=== PATIENT | male | born 1930 | race Caucasian/White ===

== ENCOUNTER 2021-07-11 21:48 | Inpatient (IN) | payer MEDICARE, OTHER ==
[~2021-07-11] VITALS: Ht 165.1 cm; Wt 66.7 kg
[2021-07-12] VITALS (17 sets, daily range): BP systolic 102–140; BP diastolic 48–82
[2021-07-12] MEDS ORDERED: ALBUTEROL SULFATE 2.5 MG/0.5 ML INH NEB SOLN NEB PRN ×2 (01:00)
[2021-07-12] MEDS ORDERED: FINA5TAB2 PO (01:53)
[2021-07-12] MEDS ORDERED: ENTR1TAB PO (01:53)
[2021-07-12] MEDS ORDERED: NITR4TASL SL (01:53)
[2021-07-12] MEDS ORDERED: ATOR40TA75 PO (01:53)
[2021-07-12] MEDS ORDERED: TERA2CAP3 PO (01:53)
[2021-07-12] MEDS ORDERED: PARO40TA2 PO (01:53)
[2021-07-12] MEDS ORDERED: TRAM50TA2 PO (01:53)
[2021-07-12] MEDS ORDERED: CLOP75TA2 PO (01:53)
[2021-07-12] MEDS ORDERED: ASPI-161 PO (01:53)
[2021-07-12] MEDS ORDERED: HOME MED LIST COMPLETE! XX SCH (01:55)
[2021-07-12] MEDS: methylPREDNISolone 40MG 1ML VIAL IV SCH ×3 (02:23→17:20)
[2021-07-12] MEDS ORDERED: FUROSEMIDE 40MG/4ML VIAL (J1940) IV ONE (03:15)
[2021-07-12 04:59] LABS: BASO % 0.2 % (0.0-1.0); EOS # 0.1 10^3/uL (0.0-0.5); EOS % 0.4 % (0.0-3.0); HEMATOCRIT 29.7 % (42.0-52.0); HEMOGLOBIN 9.6 g/dl (13.5-17.5); LYMPH # 0.4 10^3/uL (1.5-5.0); LYMPH % 2.8 % (24.0-44.0); MEAN CORPUSCULAR HEMOGLOBIN 30.5 pg (27.0-33.0); MEAN CORPUSCULAR HGB CONC 32.3 g/dl (32.0-36.5); MEAN CORPUSCULAR VOLUME 94.3 fl (80.0-96.0); MONO # 0.4 10^3/uL (0.0-0.8); MONO % 2.9 % (2.0-8.0); NEUTROPHILS # 11.5 10^3/uL (1.5-8.5); NEUTROPHILS % 93.1 % (36.0-66.0); PLATELET COUNT, AUTOMATED 167 10^3/uL (150-450); RED BLOOD COUNT 3.15 10^6/uL (4.30-6.10); WHITE BLOOD COUNT 12.4 10^3/uL (4.0-10.0)
[2021-07-12 05:29] LABS: CALCIUM LEVEL 8.1 MG/DL (8.8-10.2); CREATININE FOR GFR 1.57 MG/DL (0.70-1.30); GLOMERULAR FILTRATION RATE 44.6 (>35); MAGNESIUM LEVEL 1.7 MG/DL (1.8-2.4); PHOSPHORUS LEVEL 3.5 MG/DL (2.5-4.9); POTASSIUM SERUM 4.4 MEQ/L (3.5-5.1)
[2021-07-12] MEDS: HumaLOG INSULIN (NovoLOG) PER UNIT SC SCH ×4 (06:31→20:14)
[2021-07-12] MEDS ORDERED: IPRATROPIUM 0.5MG/ALBUTEROL 2.5MG INH SOL UD 3ML (DUONEB) NEB SCH (08:00)
[2021-07-12 08:23] LABS: ALBUMIN 2.4 GM/DL (3.2-5.2); BILIRUBIN,DIRECT 0.1 MG/DL (0.0-0.2); BILIRUBIN,TOTAL 0.4 MG/DL (0.2-1.0)
[2021-07-12] MEDS: IPRATROPIUM 0.5MG/ALBUTEROL 2.5MG INH SOL UD 3ML (DUONEB) NEB SCH ×3 (08:27→21:28)
[2021-07-12 08:30] LABS: INR 1.19; PROTHROMBIN TIME 15.5 SECONDS (12.7-14.5)
[2021-07-12 08:31] LABS: PARTIAL THROMBOPLASTIN TIME 36.3 SECONDS (25.9-37.0)
[2021-07-12] MEDS ORDERED: ENOXAPARIN 40MG/0.4ML SYRINGE (J1650 PER 10MG) SC SCH (09:00)
[2021-07-12] MEDS: HEPARIN SOD (PORCINE) 5000UNITS/ML 1ML VIAL/SYRINGE SQ SCH ×2 (09:24→20:16)
[2021-07-12] MEDS ORDERED: traMADol 50 MG TAB PO PRN (13:15)
[2021-07-12] MEDS ORDERED: LevoFLOXacin IV 500 MG in IV 1 EA IV ONE (14:00)
[2021-07-12] MEDS: ATORVASTATIN 20 MG TAB PO SCH (15:28)
[2021-07-12] MEDS: CLOPIDOGREL 75 MG TAB PO SCH (15:28)
[2021-07-12] MEDS: LACTOBACILLUS ACIDOPHILUS CAP (BACID) PO SCH (17:20)
[2021-07-12] MEDS: FUROSEMIDE 40MG/4ML VIAL (J1940) IV SCH (17:20)
[2021-07-12] MEDS: TERAZOSIN 1 MG CAP PO SCH (19:34)
[2021-07-13] MEDS: IPRATROPIUM 0.5MG/ALBUTEROL 2.5MG INH SOL UD 3ML (DUONEB) NEB SCH ×4 (01:05→17:48)
[2021-07-13] MEDS: methylPREDNISolone 40MG 1ML VIAL IV SCH ×3 (01:23→18:23)
[2021-07-13 06:00] VITALS: BP 125/48
[2021-07-13 06:11] LABS: ABG BASE EXCESS -7.4 (-2.0-2.0); ABG HCO3 16.6 MEQ/L (22.0-26.0); ABG O2 SATURATION 92.4 % (95.0-99.0); ABG PARTIAL PRESSURE CO2 28.2 mmHg (35.0-45.0); ABG PARTIAL PRESSURE O2 65.2 mmHg (75.0-100.0); ABG STANDARD HCO3 18.3 MEQ/L (22.0-26.0); ABG TOTAL CO2 17.4 MEQ/L (23.0-31.0); ABG pH (ARTERIAL) 7.387 UNITS (7.350-7.450)
[2021-07-13 07:27] LABS: HEMATOCRIT 25.8 % (42.0-52.0); HEMOGLOBIN 8.7 g/dl (13.5-17.5); MEAN CORPUSCULAR HEMOGLOBIN 31.4 pg (27.0-33.0); MEAN CORPUSCULAR HGB CONC 33.7 g/dl (32.0-36.5); MEAN CORPUSCULAR VOLUME 93.1 fl (80.0-96.0); PLATELET COUNT, AUTOMATED 171 10^3/uL (150-450); RED BLOOD COUNT 2.77 10^6/uL (4.30-6.10); WHITE BLOOD COUNT 12.6 10^3/uL (4.0-10.0)
[2021-07-13 07:55] LABS: ALBUMIN 2.4 GM/DL (3.2-5.2); BILIRUBIN,TOTAL 0.2 MG/DL (0.2-1.0); CREATININE FOR GFR 1.93 MG/DL (0.70-1.30); GLOMERULAR FILTRATION RATE 35.2 (>35); POTASSIUM SERUM 4.7 MEQ/L (3.5-5.1); TOTAL PROTEIN 5.2 GM/DL (6.4-8.2)
[2021-07-13] MEDS ORDERED: ONDANSETRON 4MG/2ML VIAL IV PRN (08:15)
[2021-07-13] MEDS ORDERED: ASPIRIN 81MG ENTERIC TABLET PO SCH (09:00)
[2021-07-13] MEDS: FUROSEMIDE 40MG/4ML VIAL (J1940) IV SCH ×2 (09:49→18:22)
[2021-07-13] MEDS: HEPARIN SOD (PORCINE) 5000UNITS/ML 1ML VIAL/SYRINGE SQ SCH ×2 (09:50→21:24)
[2021-07-13] MEDS: ATORVASTATIN 20 MG TAB PO SCH ×2 (09:51→10:05)
[2021-07-13] MEDS: LevoFLOXacin IV 250 MG in IV 1 EA IV SCH (09:52)
[2021-07-13] MEDS: LACTOBACILLUS ACIDOPHILUS CAP (BACID) PO SCH ×2 (09:52→18:24)
[2021-07-13] MEDS: CLOPIDOGREL 75 MG TAB PO SCH (10:05)
[2021-07-13] MEDS: HumaLOG INSULIN (NovoLOG) PER UNIT SC SCH ×4 (10:37→21:00)
[2021-07-13] MEDS: TERAZOSIN 1 MG CAP PO SCH (10:38)
[2021-07-13 10:44] VITALS: BP 123/49
[2021-07-13 14:00] VITALS: BP 113/56
[2021-07-13 18:22] VITALS: BP 116/41
[2021-07-13 19:16] VITALS: BP 117/43
[2021-07-14] MEDS: IPRATROPIUM 0.5MG/ALBUTEROL 2.5MG INH SOL UD 3ML (DUONEB) NEB SCH ×4 (02:20→19:28)
[2021-07-14] MEDS: methylPREDNISolone 40MG 1ML VIAL IV SCH (02:20)
[2021-07-14 03:15] VITALS: BP 139/72
[2021-07-14] MEDS ORDERED: MORPHINE 2 MG/ML 1ML VIAL IV ONE (04:00)
[2021-07-14 04:15] LABS: HEMATOCRIT 28.7 % (42.0-52.0); HEMOGLOBIN 9.4 g/dl (13.5-17.5); MEAN CORPUSCULAR HEMOGLOBIN 30.3 pg (27.0-33.0); MEAN CORPUSCULAR HGB CONC 32.8 g/dl (32.0-36.5); MEAN CORPUSCULAR VOLUME 92.6 fl (80.0-96.0); PLATELET COUNT, AUTOMATED 170 10^3/uL (150-450); WHITE BLOOD COUNT 11.6 10^3/uL (4.0-10.0)
[2021-07-14] MEDS ORDERED: HEPARIN DRIP 25,000 UNITS in IV 1 EA IV SCH (04:15)
[2021-07-14] MEDS ORDERED: HEPARIN SOD (PORCINE) 5000UNITS/ML 1ML VIAL/SYRINGE IV PRN (04:15)
[2021-07-14] MEDS ORDERED: HEPARIN SOD (PORCINE) 5000UNITS/ML 1ML VIAL/SYRINGE IV ONE (04:15)
[2021-07-14 04:35] LABS: CK-MB VALUE MASS 2.3 NG/ML (<3.6); MB/CK RELATIVE INDEX 5.9 (< OR =4)
[2021-07-14 04:52] LABS: ALBUMIN 2.6 GM/DL (3.2-5.2); BILIRUBIN,TOTAL 0.3 MG/DL (0.2-1.0); CALCIUM LEVEL 8.4 MG/DL (8.8-10.2); CREATININE FOR GFR 2.09 MG/DL (0.70-1.30); GLOMERULAR FILTRATION RATE 32.1 (>35); PERCENT SATURATION 13.6 % (19.7-50.0); POTASSIUM SERUM 4.1 MEQ/L (3.5-5.1); TOTAL PROTEIN 5.8 GM/DL (6.4-8.2)
[2021-07-14] MEDS ORDERED: ASPIRIN 81 MG CHEW TABLET PO ONE (05:00)
[2021-07-14 05:15] VITALS: BP 135/69
[2021-07-14] MEDS: CLOPIDOGREL 75 MG TAB PO SCH (09:30)
[2021-07-14] MEDS: LevoFLOXacin IV 250 MG in IV 1 EA IV SCH (09:30)
[2021-07-14] MEDS: FUROSEMIDE 40MG/4ML VIAL (J1940) IV SCH (09:30)
[2021-07-14] MEDS: FINASTERIDE 5MG TAB PO SCH (09:31)
[2021-07-14] MEDS: PARoxetine 20MG TABLET PO SCH (09:31)
[2021-07-14] MEDS: LACTOBACILLUS ACIDOPHILUS CAP (BACID) PO SCH ×2 (09:31→18:20)
[2021-07-14] MEDS: TERAZOSIN 1 MG CAP PO SCH (09:32)
[2021-07-14] MEDS: HumaLOG INSULIN (NovoLOG) PER UNIT SC SCH ×4 (09:58→20:59)
[2021-07-14] MEDS: methylPREDNISolone 125MG 2ML VIAL IV SCH ×2 (11:44→18:20)
[2021-07-14 12:00] VITALS: BP 138/66
[2021-07-14 19:22] LABS: INR 1.16; PROTHROMBIN TIME 15.2 SECONDS (12.7-14.5)
[2021-07-14 19:23] LABS: PARTIAL THROMBOPLASTIN TIME 32.9 SECONDS (25.9-37.0)
[2021-07-14] MEDS: FERROUS SULFATE 325MG TAB PO SCH (21:05)
[2021-07-14] MEDS: DOCUSATE SODIUM 100MG CAPSULE PO SCH (21:05)
[2021-07-14] MEDS: HEPARIN SOD (PORCINE) 5000UNITS/ML 1ML VIAL/SYRINGE SQ SCH (21:05)
[2021-07-14 22:00] VITALS: BP 124/54
[2021-07-15] MEDS: IPRATROPIUM 0.5MG/ALBUTEROL 2.5MG INH SOL UD 3ML (DUONEB) NEB SCH ×4 (02:00→19:17)
[2021-07-15] MEDS: methylPREDNISolone 125MG 2ML VIAL IV SCH ×3 (02:09→18:03)
[2021-07-15 02:21] VITALS: BP 124/55
[2021-07-15 05:29] VITALS: BP 121/52
[2021-07-15 06:15] LABS: HEMATOCRIT 26.6 % (42.0-52.0); HEMOGLOBIN 8.8 g/dl (13.5-17.5); MEAN CORPUSCULAR HEMOGLOBIN 30.2 pg (27.0-33.0); MEAN CORPUSCULAR HGB CONC 33.1 g/dl (32.0-36.5); MEAN CORPUSCULAR VOLUME 91.4 fl (80.0-96.0); PLATELET COUNT, AUTOMATED 163 10^3/uL (150-450); RED BLOOD COUNT 2.91 10^6/uL (4.30-6.10); WHITE BLOOD COUNT 10.7 10^3/uL (4.0-10.0)
[2021-07-15 06:38] LABS: ALBUMIN 2.4 GM/DL (3.2-5.2); ALT/SGPT 16 U/L (12-78); BILIRUBIN,TOTAL 0.2 MG/DL (0.2-1.0); BLOOD UREA NITROGEN 87 MG/DL (7-18); CALCIUM LEVEL 7.9 MG/DL (8.8-10.2); CARBON DIOXIDE LEVEL 24 MEQ/L (21-32); CHLORIDE LEVEL 108 MEQ/L (98-107); CREATININE FOR GFR 2.07 MG/DL (0.70-1.30); FERRITIN 122 NG/ML (26-388); GLOMERULAR FILTRATION RATE 32.4 (>35); GLUCOSE, FASTING 179 MG/DL (70-100); IRON (FE) 61 UG/DL (65-175); PERCENT SATURATION 28.1 % (19.7-50.0); POTASSIUM SERUM 4.1 MEQ/L (3.5-5.1); SODIUM LEVEL 139 MEQ/L (136-145); TOTAL IRON BINDING CAPACITY 217 UG/DL (250-450); TOTAL PROTEIN 5.1 GM/DL (6.4-8.2)
[2021-07-15] MEDS: HumaLOG INSULIN (NovoLOG) PER UNIT SC SCH ×4 (08:25→21:53)
[2021-07-15] MEDS: HEPARIN SOD (PORCINE) 5000UNITS/ML 1ML VIAL/SYRINGE SQ SCH ×2 (08:26→21:53)
[2021-07-15] MEDS: FERROUS SULFATE 325MG TAB PO SCH ×2 (08:26→21:53)
[2021-07-15] MEDS: LACTOBACILLUS ACIDOPHILUS CAP (BACID) PO SCH ×2 (08:26→18:03)
[2021-07-15] MEDS: CLOPIDOGREL 75 MG TAB PO SCH (08:27)
[2021-07-15] MEDS: FINASTERIDE 5MG TAB PO SCH (08:27)
[2021-07-15] MEDS: PARoxetine 20MG TABLET PO SCH (08:27)
[2021-07-15] MEDS: DOCUSATE SODIUM 100MG CAPSULE PO SCH ×2 (08:27→21:53)
[2021-07-15] MEDS: TERAZOSIN 1 MG CAP PO SCH (08:28)
[2021-07-15] MEDS: ATORVASTATIN 20 MG TAB PO SCH (08:28)
[2021-07-15] MEDS: ENTRESTO 24-26MG TABLET (SACUBITRIL/VALSARTAN) PO SCH ×2 (10:54→21:52)
[2021-07-15 11:21] LABS: PTH INTACT 71.4 PG/ML (18.5-88.0); TOTAL 25(OH) VITAMIN D 31.3 NG/ML (30.0-100.0)
[2021-07-15 12:35] LABS: HEMOGLOBIN A1c 5.9 %
[2021-07-15 14:00] VITALS: BP 120/50
[2021-07-15 21:50] VITALS: BP 127/49
[2021-07-16] MEDS: methylPREDNISolone 125MG 2ML VIAL IV SCH ×3 (01:57→18:46)
[2021-07-16] MEDS: IPRATROPIUM 0.5MG/ALBUTEROL 2.5MG INH SOL UD 3ML (DUONEB) NEB SCH ×4 (01:57→19:48)
[2021-07-16] MEDS: NYSTATIN 100,000 UNITS/GM TOPICAL PWD 15 GM TOP SCH ×3 (01:57→22:18)
[2021-07-16 06:15] LABS: HEMATOCRIT 27.5 % (42.0-52.0); HEMOGLOBIN 8.9 g/dl (13.5-17.5); MEAN CORPUSCULAR HEMOGLOBIN 30.2 pg (27.0-33.0); MEAN CORPUSCULAR HGB CONC 32.4 g/dl (32.0-36.5); MEAN CORPUSCULAR VOLUME 93.2 fl (80.0-96.0); PLATELET COUNT, AUTOMATED 168 10^3/uL (150-450); RED BLOOD COUNT 2.95 10^6/uL (4.30-6.10); WHITE BLOOD COUNT 12.5 10^3/uL (4.0-10.0)
[2021-07-16 06:26] VITALS: BP 127/50
[2021-07-16 06:38] LABS: ALBUMIN 2.5 GM/DL (3.2-5.2); BILIRUBIN,TOTAL 0.2 MG/DL (0.2-1.0); CALCIUM LEVEL 8.3 MG/DL (8.8-10.2); CREATININE FOR GFR 1.93 MG/DL (0.70-1.30); GLOMERULAR FILTRATION RATE 35.2 (>35); POTASSIUM SERUM 4.2 MEQ/L (3.5-5.1); TOTAL PROTEIN 5.1 GM/DL (6.4-8.2)
[2021-07-16 06:49] LABS: CREATININE,RANDOM URINE 73.1 MG/DL
[2021-07-16] MEDS: HumaLOG INSULIN (NovoLOG) PER UNIT SC SCH ×4 (10:21→21:00)
[2021-07-16] MEDS: HEPARIN SOD (PORCINE) 5000UNITS/ML 1ML VIAL/SYRINGE SQ SCH ×2 (10:22→22:17)
[2021-07-16] MEDS: ATORVASTATIN 20 MG TAB PO SCH (10:23)
[2021-07-16] MEDS: ENTRESTO 24-26MG TABLET (SACUBITRIL/VALSARTAN) PO SCH ×2 (10:23→22:18)
[2021-07-16] MEDS: FERROUS SULFATE 325MG TAB PO SCH ×2 (10:23→22:18)
[2021-07-16] MEDS: DOCUSATE SODIUM 100MG CAPSULE PO SCH ×2 (10:23→22:17)
[2021-07-16] MEDS: CLOPIDOGREL 75 MG TAB PO SCH (10:23)
[2021-07-16] MEDS: FINASTERIDE 5MG TAB PO SCH (10:23)
[2021-07-16] MEDS: PARoxetine 20MG TABLET PO SCH (10:29)
[2021-07-16] MEDS: TERAZOSIN 1 MG CAP PO SCH (10:29)
[2021-07-16] MEDS: LACTOBACILLUS ACIDOPHILUS CAP (BACID) PO SCH ×2 (10:29→18:46)
[2021-07-16] MEDS: FUROSEMIDE 100MG/10ML VIAL (J1940) IV SCH ×2 (11:29→19:21)
[2021-07-16 14:00] VITALS: BP 133/60
[2021-07-16 20:24] VITALS: BP 128/63
[2021-07-17] MEDS: IPRATROPIUM 0.5MG/ALBUTEROL 2.5MG INH SOL UD 3ML (DUONEB) NEB SCH ×4 (01:24→18:23)
[2021-07-17] MEDS: FUROSEMIDE 100MG/10ML VIAL (J1940) IV SCH ×2 (03:17→09:21)
[2021-07-17] MEDS: methylPREDNISolone 125MG 2ML VIAL IV SCH ×2 (06:17→19:54)
[2021-07-17 06:44] LABS: HEMATOCRIT 30.3 % (42.0-52.0); HEMOGLOBIN 10.3 g/dl (13.5-17.5); MEAN CORPUSCULAR HEMOGLOBIN 30.6 pg (27.0-33.0); MEAN CORPUSCULAR VOLUME 89.9 fl (80.0-96.0); PLATELET COUNT, AUTOMATED 205 10^3/uL (150-450); RED BLOOD COUNT 3.37 10^6/uL (4.30-6.10); WHITE BLOOD COUNT 18.9 10^3/uL (4.0-10.0)
[2021-07-17 07:20] LABS: ALBUMIN 2.7 GM/DL (3.2-5.2); BILIRUBIN,TOTAL 0.4 MG/DL (0.2-1.0); CALCIUM LEVEL 8.1 MG/DL (8.8-10.2); CREATININE FOR GFR 1.92 MG/DL (0.70-1.30); GLOMERULAR FILTRATION RATE 35.4 (>35); POTASSIUM SERUM 4.1 MEQ/L (3.5-5.1); TOTAL PROTEIN 5.6 GM/DL (6.4-8.2)
[2021-07-17] MEDS: HumaLOG INSULIN (NovoLOG) PER UNIT SC SCH ×4 (09:20→21:00)
[2021-07-17] MEDS: FINASTERIDE 5MG TAB PO SCH (09:20)
[2021-07-17] MEDS: HEPARIN SOD (PORCINE) 5000UNITS/ML 1ML VIAL/SYRINGE SQ SCH ×2 (09:20→23:20)
[2021-07-17] MEDS: PARoxetine 20MG TABLET PO SCH (09:20)
[2021-07-17] MEDS: ENTRESTO 24-26MG TABLET (SACUBITRIL/VALSARTAN) PO SCH ×2 (09:21→23:19)
[2021-07-17] MEDS: CLOPIDOGREL 75 MG TAB PO SCH (09:21)
[2021-07-17] MEDS: FERROUS SULFATE 325MG TAB PO SCH ×2 (09:21→23:20)
[2021-07-17] MEDS: DOCUSATE SODIUM 100MG CAPSULE PO SCH ×2 (09:21→23:19)
[2021-07-17] MEDS: ATORVASTATIN 20 MG TAB PO SCH (09:21)
[2021-07-17] MEDS: LACTOBACILLUS ACIDOPHILUS CAP (BACID) PO SCH ×2 (09:21→18:00)
[2021-07-17] MEDS: TERAZOSIN 1 MG CAP PO SCH (09:24)
[2021-07-17] MEDS: NYSTATIN 100,000 UNITS/GM TOPICAL PWD 15 GM TOP SCH ×2 (09:24→23:21)
[2021-07-17 13:39] VITALS: BP 86/56
[2021-07-17 14:00] VITALS: BP 98/52
[2021-07-17] MEDS ORDERED: NS 1,000 ML IV ONE (14:45)
[2021-07-17 14:50] VITALS: BP 104/51
[2021-07-17 15:25] VITALS: BP 106/50
[2021-07-17] MEDS ORDERED: FUROSEMIDE 100MG/10ML VIAL (J1940) IV SCH (17:00)
[2021-07-17 18:00] VITALS: BP 104/50
[2021-07-18] MEDS: IPRATROPIUM 0.5MG/ALBUTEROL 2.5MG INH SOL UD 3ML (DUONEB) NEB SCH ×4 (02:11→18:04)
[2021-07-18 06:00] VITALS: BP 107/50
[2021-07-18 06:13] LABS: HEMOGLOBIN 9.8 g/dl (13.5-17.5); MEAN CORPUSCULAR HEMOGLOBIN 30.3 pg (27.0-33.0); MEAN CORPUSCULAR HGB CONC 32.7 g/dl (32.0-36.5); MEAN CORPUSCULAR VOLUME 92.9 fl (80.0-96.0); PLATELET COUNT, AUTOMATED 182 10^3/uL (150-450); RED BLOOD COUNT 3.23 10^6/uL (4.30-6.10)
[2021-07-18 06:38] LABS: ALBUMIN 2.5 GM/DL (3.2-5.2); BILIRUBIN,TOTAL 0.4 MG/DL (0.2-1.0); CALCIUM LEVEL 7.7 MG/DL (8.8-10.2); CREATININE FOR GFR 2.1 MG/DL (0.70-1.30); GLOMERULAR FILTRATION RATE 31.9 (>35); TOTAL PROTEIN 5.1 GM/DL (6.4-8.2)
[2021-07-18] MEDS: HumaLOG INSULIN (NovoLOG) PER UNIT SC SCH ×4 (07:30→21:00)
[2021-07-18] MEDS: DOCUSATE SODIUM 100MG CAPSULE PO SCH ×2 (09:00→21:45)
[2021-07-18] MEDS: FERROUS SULFATE 325MG TAB PO SCH ×2 (09:56→21:45)
[2021-07-18] MEDS: LACTOBACILLUS ACIDOPHILUS CAP (BACID) PO SCH ×2 (09:56→18:00)
[2021-07-18] MEDS: PARoxetine 20MG TABLET PO SCH (09:56)
[2021-07-18] MEDS: ATORVASTATIN 20 MG TAB PO SCH (09:56)
[2021-07-18] MEDS: CLOPIDOGREL 75 MG TAB PO SCH (09:56)
[2021-07-18] MEDS: FINASTERIDE 5MG TAB PO SCH (09:56)
[2021-07-18] MEDS: predniSONE 20 MG TAB PO SCH (09:56)
[2021-07-18] MEDS: TERAZOSIN 1 MG CAP PO SCH (09:57)
[2021-07-18 09:58] VITALS: BP 125/59
[2021-07-18] MEDS: NYSTATIN 100,000 UNITS/GM TOPICAL PWD 15 GM TOP SCH ×2 (09:58→21:46)
[2021-07-18] MEDS: ENTRESTO 24-26MG TABLET (SACUBITRIL/VALSARTAN) PO SCH (09:58)
[2021-07-18] MEDS: HEPARIN SOD (PORCINE) 5000UNITS/ML 1ML VIAL/SYRINGE SQ SCH ×2 (09:58→21:46)
[2021-07-18 12:58] LABS: ALBUMIN 2.64 GM/DL (3.29-5.55); ALBUMIN % 51.7 % (55.8-66.1); ALPHA-1-GLOBULIN % 9.5 % (2.9-4.9); ALPHA-1-GLOBULINS 0.48 GM/DL (0.17-0.41); BETA-1-GLOBULINS % 5.4 % (4.7-7.2); BETA-2-GLOBULINS % 4.6 % (3.2-6.5); GAMMA GLOBULIN % 12.8 % (11.1-18.8)
[2021-07-18 12:59] LABS: ALPHA-2-GLOBULINS 0.82 GM/DL (0.42-0.99); BETA-1-GLOBULINS 0.28 GM/DL (0.28-0.60); BETA-2-GLOBULINS 0.23 GM/DL (0.19-0.55); GAMMA GLOBULINS 0.65 GM/DL (0.65-1.58)
[2021-07-18 14:20] VITALS: BP 78/56
[2021-07-18 14:30] VITALS: BP 107/49
[2021-07-18 21:01] VITALS: BP 105/51
[2021-07-19] MEDS: IPRATROPIUM 0.5MG/ALBUTEROL 2.5MG INH SOL UD 3ML (DUONEB) NEB SCH ×4 (02:00→20:04)
[2021-07-19 05:07] VITALS: BP 109/52
[2021-07-19 06:25] LABS: HEMATOCRIT 31.8 % (42.0-52.0); HEMOGLOBIN 10.4 g/dl (13.5-17.5); MEAN CORPUSCULAR HEMOGLOBIN 30.1 pg (27.0-33.0); MEAN CORPUSCULAR HGB CONC 32.7 g/dl (32.0-36.5); MEAN CORPUSCULAR VOLUME 91.9 fl (80.0-96.0); PLATELET COUNT, AUTOMATED 157 10^3/uL (150-450); RED BLOOD COUNT 3.46 10^6/uL (4.30-6.10); WHITE BLOOD COUNT 17.9 10^3/uL (4.0-10.0)
[2021-07-19 06:52] LABS: ALBUMIN 2.4 GM/DL (3.2-5.2); BILIRUBIN,TOTAL 0.5 MG/DL (0.2-1.0); CALCIUM LEVEL 7.9 MG/DL (8.8-10.2); CREATININE FOR GFR 1.89 MG/DL (0.70-1.30); POTASSIUM SERUM 3.9 MEQ/L (3.5-5.1); TOTAL PROTEIN 5.4 GM/DL (6.4-8.2)
[2021-07-19 07:00] VITALS: BP 110/48
[2021-07-19] MEDS: HumaLOG INSULIN (NovoLOG) PER UNIT SC SCH ×4 (07:29→21:00)
[2021-07-19] MEDS: LACTOBACILLUS ACIDOPHILUS CAP (BACID) PO SCH ×2 (07:33→18:00)
[2021-07-19] MEDS: CLOPIDOGREL 75 MG TAB PO SCH (09:15)
[2021-07-19] MEDS: FERROUS SULFATE 325MG TAB PO SCH ×2 (09:16→21:59)
[2021-07-19] MEDS: FINASTERIDE 5MG TAB PO SCH (09:16)
[2021-07-19] MEDS: PARoxetine 20MG TABLET PO SCH (09:16)
[2021-07-19] MEDS: ATORVASTATIN 20 MG TAB PO SCH (09:16)
[2021-07-19] MEDS: DOCUSATE SODIUM 100MG CAPSULE PO SCH ×2 (09:16→21:59)
[2021-07-19] MEDS: predniSONE 20 MG TAB PO SCH (09:16)
[2021-07-19] MEDS: HEPARIN SOD (PORCINE) 5000UNITS/ML 1ML VIAL/SYRINGE SQ SCH ×2 (09:17→21:59)
[2021-07-19] MEDS: NYSTATIN 100,000 UNITS/GM TOPICAL PWD 15 GM TOP SCH ×2 (09:21→22:00)
[2021-07-19] MEDS: TERAZOSIN 1 MG CAP PO SCH (10:04)
[2021-07-19 14:00] VITALS: BP 110/50
[2021-07-19 18:00] VITALS: BP 100/46
[2021-07-20] MEDS: IPRATROPIUM 0.5MG/ALBUTEROL 2.5MG INH SOL UD 3ML (DUONEB) NEB SCH ×4 (01:30→19:25)
[2021-07-20 05:21] VITALS: BP 120/55
[2021-07-20 07:03] LABS: HEMOGLOBIN 10.5 g/dl (13.5-17.5); MEAN CORPUSCULAR HEMOGLOBIN 30.4 pg (27.0-33.0); MEAN CORPUSCULAR HGB CONC 32.8 g/dl (32.0-36.5); MEAN CORPUSCULAR VOLUME 92.8 fl (80.0-96.0); PLATELET COUNT, AUTOMATED 169 10^3/uL (150-450); RED BLOOD COUNT 3.45 10^6/uL (4.30-6.10); WHITE BLOOD COUNT 16.5 10^3/uL (4.0-10.0)
[2021-07-20] MEDS: HumaLOG INSULIN (NovoLOG) PER UNIT SC SCH ×4 (07:30→20:08)
[2021-07-20 07:33] LABS: ALBUMIN 2.4 GM/DL (3.2-5.2); BILIRUBIN,TOTAL 0.4 MG/DL (0.2-1.0); CALCIUM LEVEL 7.8 MG/DL (8.8-10.2); CREATININE FOR GFR 2.04 MG/DL (0.70-1.30); POTASSIUM SERUM 3.9 MEQ/L (3.5-5.1)
[2021-07-20] MEDS: FERROUS SULFATE 325MG TAB PO SCH ×2 (08:21→21:07)
[2021-07-20] MEDS: PARoxetine 20MG TABLET PO SCH (08:21)
[2021-07-20] MEDS: CLOPIDOGREL 75 MG TAB PO SCH (08:21)
[2021-07-20] MEDS: predniSONE 20 MG TAB PO SCH (08:21)
[2021-07-20] MEDS: HEPARIN SOD (PORCINE) 5000UNITS/ML 1ML VIAL/SYRINGE SQ SCH ×2 (08:22→21:07)
[2021-07-20] MEDS: LACTOBACILLUS ACIDOPHILUS CAP (BACID) PO SCH ×2 (08:22→17:45)
[2021-07-20] MEDS: DOCUSATE SODIUM 100MG CAPSULE PO SCH ×2 (08:22→21:07)
[2021-07-20] MEDS: TERAZOSIN 1 MG CAP PO SCH (08:23)
[2021-07-20] MEDS: FINASTERIDE 5MG TAB PO SCH (08:24)
[2021-07-20] MEDS: ATORVASTATIN 20 MG TAB PO SCH (08:24)
[2021-07-20] MEDS: NYSTATIN 100,000 UNITS/GM TOPICAL PWD 15 GM TOP SCH ×2 (08:25→21:08)
[2021-07-20] MEDS: TORSEMIDE 20 MG TAB PO SCH (10:26)
[2021-07-20 11:36] VITALS: O2SAT 93
[2021-07-21] MEDS: IPRATROPIUM 0.5MG/ALBUTEROL 2.5MG INH SOL UD 3ML (DUONEB) NEB SCH ×4 (02:00→19:55)
[2021-07-21 06:00] VITALS: BP 115/55
[2021-07-21 06:51] LABS: HEMATOCRIT 32.2 % (42.0-52.0); HEMOGLOBIN 10.4 g/dl (13.5-17.5); MEAN CORPUSCULAR HEMOGLOBIN 30.1 pg (27.0-33.0); MEAN CORPUSCULAR HGB CONC 32.3 g/dl (32.0-36.5); MEAN CORPUSCULAR VOLUME 93.3 fl (80.0-96.0); PLATELET COUNT, AUTOMATED 165 10^3/uL (150-450); RED BLOOD COUNT 3.45 10^6/uL (4.30-6.10); WHITE BLOOD COUNT 14.4 10^3/uL (4.0-10.0)
[2021-07-21 07:20] LABS: ALBUMIN 2.5 GM/DL (3.2-5.2); BILIRUBIN,TOTAL 0.4 MG/DL (0.2-1.0); CALCIUM LEVEL 7.8 MG/DL (8.8-10.2); CREATININE FOR GFR 1.93 MG/DL (0.70-1.30); GLOMERULAR FILTRATION RATE 35.2 (>35); POTASSIUM SERUM 4.2 MEQ/L (3.5-5.1); TOTAL PROTEIN 5.1 GM/DL (6.4-8.2)
[2021-07-21] MEDS: HumaLOG INSULIN (NovoLOG) PER UNIT SC SCH ×4 (08:38→21:00)
[2021-07-21] MEDS: HEPARIN SOD (PORCINE) 5000UNITS/ML 1ML VIAL/SYRINGE SQ SCH ×2 (09:10→21:59)
[2021-07-21] MEDS: FINASTERIDE 5MG TAB PO SCH (09:10)
[2021-07-21] MEDS: PARoxetine 20MG TABLET PO SCH (09:13)
[2021-07-21] MEDS: predniSONE 50 MG TAB PO SCH (09:13)
[2021-07-21] MEDS: ATORVASTATIN 20 MG TAB PO SCH (09:14)
[2021-07-21] MEDS: FERROUS SULFATE 325MG TAB PO SCH ×2 (09:14→21:59)
[2021-07-21] MEDS: TERAZOSIN 1 MG CAP PO SCH (09:14)
[2021-07-21] MEDS: TORSEMIDE 20 MG TAB PO SCH (09:15)
[2021-07-21] MEDS: CLOPIDOGREL 75 MG TAB PO SCH (09:15)
[2021-07-21] MEDS: DOCUSATE SODIUM 100MG CAPSULE PO SCH ×2 (09:15→21:59)
[2021-07-21] MEDS: LACTOBACILLUS ACIDOPHILUS CAP (BACID) PO SCH ×2 (09:15→18:03)
[2021-07-21] MEDS: NYSTATIN 100,000 UNITS/GM TOPICAL PWD 15 GM TOP SCH ×2 (09:16→22:00)
[2021-07-21 22:00] VITALS: BP 108/53
[2021-07-22] MEDS: IPRATROPIUM 0.5MG/ALBUTEROL 2.5MG INH SOL UD 3ML (DUONEB) NEB SCH ×4 (02:00→19:55)
[2021-07-22 06:00] VITALS: BP 124/58
[2021-07-22] MEDS: HumaLOG INSULIN (NovoLOG) PER UNIT SC SCH ×4 (07:30→21:00)
[2021-07-22 07:46] LABS: MEAN CORPUSCULAR HGB CONC 33.3 g/dl (32.0-36.5); PLATELET COUNT, AUTOMATED 150 10^3/uL (150-450); RED BLOOD COUNT 3.55 10^6/uL (4.30-6.10); WHITE BLOOD COUNT 12.4 10^3/uL (4.0-10.0)
[2021-07-22 08:12] LABS: ALBUMIN 2.5 GM/DL (3.2-5.2); BILIRUBIN,TOTAL 0.4 MG/DL (0.2-1.0); CALCIUM LEVEL 7.8 MG/DL (8.8-10.2); CREATININE FOR GFR 1.97 MG/DL (0.70-1.30); GLOMERULAR FILTRATION RATE 34.3 (>35); POTASSIUM SERUM 3.9 MEQ/L (3.5-5.1); TOTAL PROTEIN 5.5 GM/DL (6.4-8.2)
[2021-07-22] MEDS: predniSONE 50 MG TAB PO SCH (09:37)
[2021-07-22] MEDS: HEPARIN SOD (PORCINE) 5000UNITS/ML 1ML VIAL/SYRINGE SQ SCH ×2 (09:37→21:06)
[2021-07-22] MEDS: PARoxetine 20MG TABLET PO SCH (09:42)
[2021-07-22] MEDS: TERAZOSIN 1 MG CAP PO SCH (09:42)
[2021-07-22] MEDS: ATORVASTATIN 20 MG TAB PO SCH (09:43)
[2021-07-22] MEDS: DOCUSATE SODIUM 100MG CAPSULE PO SCH ×2 (09:43→21:06)
[2021-07-22] MEDS: FINASTERIDE 5MG TAB PO SCH (09:43)
[2021-07-22] MEDS: LACTOBACILLUS ACIDOPHILUS CAP (BACID) PO SCH ×2 (09:43→19:37)
[2021-07-22] MEDS: FERROUS SULFATE 325MG TAB PO SCH ×2 (09:43→21:06)
[2021-07-22] MEDS: CLOPIDOGREL 75 MG TAB PO SCH (09:43)
[2021-07-22] MEDS: TORSEMIDE 20 MG TAB PO SCH (09:43)
[2021-07-22] MEDS: NYSTATIN 100,000 UNITS/GM TOPICAL PWD 15 GM TOP SCH ×2 (09:56→21:07)
[2021-07-22 18:09] VITALS: BP 121/53
[2021-07-22 18:14] VITALS: BP 89/51
[2021-07-23] MEDS: IPRATROPIUM 0.5MG/ALBUTEROL 2.5MG INH SOL UD 3ML (DUONEB) NEB SCH ×4 (02:42→19:45)
[2021-07-23 05:24] VITALS: BP 110/58
[2021-07-23 07:20] LABS: HEMATOCRIT 32.3 % (42.0-52.0); HEMOGLOBIN 10.5 g/dl (13.5-17.5); MEAN CORPUSCULAR HEMOGLOBIN 30.2 pg (27.0-33.0); MEAN CORPUSCULAR HGB CONC 32.5 g/dl (32.0-36.5); MEAN CORPUSCULAR VOLUME 92.8 fl (80.0-96.0); PLATELET COUNT, AUTOMATED 152 10^3/uL (150-450); RED BLOOD COUNT 3.48 10^6/uL (4.30-6.10); WHITE BLOOD COUNT 13.8 10^3/uL (4.0-10.0)
[2021-07-23 07:27] LABS: ALBUMIN 2.5 GM/DL (3.2-5.2); BILIRUBIN,TOTAL 0.3 MG/DL (0.2-1.0); CREATININE FOR GFR 2.07 MG/DL (0.70-1.30); GLOMERULAR FILTRATION RATE 32.4 (>35); POTASSIUM SERUM 4.2 MEQ/L (3.5-5.1); TOTAL PROTEIN 5.7 GM/DL (6.4-8.2)
[2021-07-23] MEDS: HumaLOG INSULIN (NovoLOG) PER UNIT SC SCH ×4 (07:30→20:24)
[2021-07-23] MEDS: TORSEMIDE 20 MG TAB PO SCH (08:35)
[2021-07-23] MEDS: ATORVASTATIN 20 MG TAB PO SCH (08:35)
[2021-07-23] MEDS: PARoxetine 20MG TABLET PO SCH (08:37)
[2021-07-23] MEDS: LACTOBACILLUS ACIDOPHILUS CAP (BACID) PO SCH ×2 (08:37→17:48)
[2021-07-23] MEDS: CLOPIDOGREL 75 MG TAB PO SCH (08:37)
[2021-07-23] MEDS: TERAZOSIN 1 MG CAP PO SCH (08:37)
[2021-07-23] MEDS: DOCUSATE SODIUM 100MG CAPSULE PO SCH ×2 (08:37→20:23)
[2021-07-23] MEDS: FINASTERIDE 5MG TAB PO SCH (08:37)
[2021-07-23] MEDS: predniSONE 20 MG TAB PO SCH (08:38)
[2021-07-23] MEDS: FERROUS SULFATE 325MG TAB PO SCH ×2 (08:38→20:23)
[2021-07-23] MEDS: HEPARIN SOD (PORCINE) 5000UNITS/ML 1ML VIAL/SYRINGE SQ SCH ×2 (08:40→20:23)
[2021-07-23] MEDS: NYSTATIN 100,000 UNITS/GM TOPICAL PWD 15 GM TOP SCH ×2 (08:41→21:06)
[2021-07-24] MEDS: IPRATROPIUM 0.5MG/ALBUTEROL 2.5MG INH SOL UD 3ML (DUONEB) NEB SCH ×4 (02:51→19:38)
[2021-07-24 04:58] VITALS: BP 102/63
[2021-07-24 06:14] LABS: HEMATOCRIT 32.4 % (42.0-52.0); HEMOGLOBIN 10.8 g/dl (13.5-17.5); MEAN CORPUSCULAR HEMOGLOBIN 31.1 pg (27.0-33.0); MEAN CORPUSCULAR HGB CONC 33.3 g/dl (32.0-36.5); MEAN CORPUSCULAR VOLUME 93.4 fl (80.0-96.0); PLATELET COUNT, AUTOMATED 136 10^3/uL (150-450); RED BLOOD COUNT 3.47 10^6/uL (4.30-6.10); WHITE BLOOD COUNT 14.7 10^3/uL (4.0-10.0)
[2021-07-24 06:42] LABS: ALBUMIN 2.5 GM/DL (3.2-5.2); BILIRUBIN,TOTAL 0.5 MG/DL (0.2-1.0); CALCIUM LEVEL 7.8 MG/DL (8.8-10.2); CREATININE FOR GFR 2.04 MG/DL (0.70-1.30); POTASSIUM SERUM 4.7 MEQ/L (3.5-5.1); TOTAL PROTEIN 5.5 GM/DL (6.4-8.2)
[2021-07-24] MEDS: HumaLOG INSULIN (NovoLOG) PER UNIT SC SCH ×4 (07:30→21:37)
[2021-07-24] MEDS: HEPARIN SOD (PORCINE) 5000UNITS/ML 1ML VIAL/SYRINGE SQ SCH ×2 (08:33→21:38)
[2021-07-24] MEDS: FINASTERIDE 5MG TAB PO SCH (08:33)
[2021-07-24] MEDS: LACTOBACILLUS ACIDOPHILUS CAP (BACID) PO SCH ×2 (08:33→16:58)
[2021-07-24] MEDS: PARoxetine 20MG TABLET PO SCH (08:33)
[2021-07-24] MEDS: NYSTATIN 100,000 UNITS/GM TOPICAL PWD 15 GM TOP SCH ×2 (08:33→21:38)
[2021-07-24] MEDS: DOCUSATE SODIUM 100MG CAPSULE PO SCH ×2 (08:34→21:36)
[2021-07-24] MEDS: ATORVASTATIN 20 MG TAB PO SCH (08:34)
[2021-07-24] MEDS: CLOPIDOGREL 75 MG TAB PO SCH (08:34)
[2021-07-24] MEDS: predniSONE 20 MG TAB PO SCH (08:34)
[2021-07-24] MEDS: TORSEMIDE 10 MG TABLET PO SCH (08:34)
[2021-07-24] MEDS: TERAZOSIN 1 MG CAP PO SCH (08:34)
[2021-07-24] MEDS: FERROUS SULFATE 325MG TAB PO SCH ×2 (08:34→21:37)
[2021-07-24 20:00] VITALS: BP 130/61
[2021-07-25] MEDS: IPRATROPIUM 0.5MG/ALBUTEROL 2.5MG INH SOL UD 3ML (DUONEB) NEB SCH ×4 (02:05→19:30)
[2021-07-25 06:00] VITALS: BP 114/60
[2021-07-25 06:37] LABS: HEMATOCRIT 30.9 % (42.0-52.0); HEMOGLOBIN 10.1 g/dl (13.5-17.5); MEAN CORPUSCULAR HEMOGLOBIN 30.3 pg (27.0-33.0); MEAN CORPUSCULAR HGB CONC 32.7 g/dl (32.0-36.5); MEAN CORPUSCULAR VOLUME 92.8 fl (80.0-96.0); PLATELET COUNT, AUTOMATED 133 10^3/uL (150-450); RED BLOOD COUNT 3.33 10^6/uL (4.30-6.10); WHITE BLOOD COUNT 17.3 10^3/uL (4.0-10.0)
[2021-07-25 07:12] LABS: ALBUMIN 2.4 GM/DL (3.2-5.2); BILIRUBIN,TOTAL 0.4 MG/DL (0.2-1.0); CREATININE FOR GFR 1.89 MG/DL (0.70-1.30); POTASSIUM SERUM 4.1 MEQ/L (3.5-5.1); TOTAL PROTEIN 5.3 GM/DL (6.4-8.2)
[2021-07-25] MEDS: HumaLOG INSULIN (NovoLOG) PER UNIT SC SCH ×4 (07:30→20:04)
[2021-07-25] MEDS: PARoxetine 20MG TABLET PO SCH (10:19)
[2021-07-25] MEDS: HEPARIN SOD (PORCINE) 5000UNITS/ML 1ML VIAL/SYRINGE SQ SCH ×2 (10:19→20:09)
[2021-07-25] MEDS: FERROUS SULFATE 325MG TAB PO SCH ×2 (10:20→20:08)
[2021-07-25] MEDS: DOCUSATE SODIUM 100MG CAPSULE PO SCH ×2 (10:20→20:08)
[2021-07-25] MEDS: predniSONE 20 MG TAB PO SCH (10:20)
[2021-07-25] MEDS: FINASTERIDE 5MG TAB PO SCH (10:20)
[2021-07-25] MEDS: TERAZOSIN 1 MG CAP PO SCH (10:20)
[2021-07-25] MEDS: CLOPIDOGREL 75 MG TAB PO SCH (10:21)
[2021-07-25] MEDS: ATORVASTATIN 20 MG TAB PO SCH (10:21)
[2021-07-25] MEDS: TORSEMIDE 10 MG TABLET PO SCH (10:21)
[2021-07-25] MEDS: LACTOBACILLUS ACIDOPHILUS CAP (BACID) PO SCH ×2 (10:22→17:01)
[2021-07-25] MEDS: NYSTATIN 100,000 UNITS/GM TOPICAL PWD 15 GM TOP SCH ×2 (10:22→20:10)
[2021-07-25 14:00] VITALS: BP 103/54
[2021-07-25] MEDS: MOM 30ML SUSPENSION UDC PO PRN (15:34)
[2021-07-25] MEDS: ACETAMINOPHEN TAB 650MG DOSE (2X325MG) PO PRN (17:02)
[2021-07-26] MEDS: IPRATROPIUM 0.5MG/ALBUTEROL 2.5MG INH SOL UD 3ML (DUONEB) NEB SCH ×4 (01:12→19:32)
[2021-07-26] MEDS: ACETAMINOPHEN TAB 650MG DOSE (2X325MG) PO PRN (04:05)
[2021-07-26 04:50] VITALS: BP 133/61
[2021-07-26 06:47] LABS: HEMATOCRIT 30.4 % (42.0-52.0); HEMOGLOBIN 10.2 g/dl (13.5-17.5); MEAN CORPUSCULAR HEMOGLOBIN 31.3 pg (27.0-33.0); MEAN CORPUSCULAR HGB CONC 33.6 g/dl (32.0-36.5); MEAN CORPUSCULAR VOLUME 93.3 fl (80.0-96.0); PLATELET COUNT, AUTOMATED 129 10^3/uL (150-450); RED BLOOD COUNT 3.26 10^6/uL (4.30-6.10); WHITE BLOOD COUNT 15.8 10^3/uL (4.0-10.0)
[2021-07-26 07:18] LABS: ALBUMIN 2.5 GM/DL (3.2-5.2); BILIRUBIN,TOTAL 0.4 MG/DL (0.2-1.0); CALCIUM LEVEL 8.2 MG/DL (8.8-10.2); GLOMERULAR FILTRATION RATE 33.7 (>35); POTASSIUM SERUM 4.5 MEQ/L (3.5-5.1); TOTAL PROTEIN 5.5 GM/DL (6.4-8.2)
[2021-07-26] MEDS: HumaLOG INSULIN (NovoLOG) PER UNIT SC SCH ×4 (07:30→20:42)
[2021-07-26] MEDS: DOCUSATE SODIUM 100MG CAPSULE PO SCH ×2 (09:39→20:47)
[2021-07-26] MEDS: MOM 30ML SUSPENSION UDC PO PRN (09:39)
[2021-07-26] MEDS: HEPARIN SOD (PORCINE) 5000UNITS/ML 1ML VIAL/SYRINGE SQ SCH ×2 (09:39→20:49)
[2021-07-26] MEDS: FERROUS SULFATE 325MG TAB PO SCH ×2 (09:39→18:01)
[2021-07-26] MEDS: PARoxetine 20MG TABLET PO SCH (09:40)
[2021-07-26] MEDS: LACTOBACILLUS ACIDOPHILUS CAP (BACID) PO SCH ×2 (09:40→17:47)
[2021-07-26] MEDS: FINASTERIDE 5MG TAB PO SCH (09:40)
[2021-07-26] MEDS: predniSONE 10 MG TAB PO SCH (09:42)
[2021-07-26] MEDS: TERAZOSIN 1 MG CAP PO SCH (09:42)
[2021-07-26] MEDS: ATORVASTATIN 20 MG TAB PO SCH (09:42)
[2021-07-26] MEDS: CLOPIDOGREL 75 MG TAB PO SCH (09:42)
[2021-07-26] MEDS: TORSEMIDE 10 MG TABLET PO SCH (09:42)
[2021-07-26] MEDS: NYSTATIN 100,000 UNITS/GM TOPICAL PWD 15 GM TOP SCH ×2 (09:43→20:50)
[2021-07-26] MEDS ORDERED: PILL CUTTER 1 EACH XX PRN (10:50)
[2021-07-26] MEDS: traMADol 50 MG TAB PO PRN ×2 (11:23→17:47)
[2021-07-26] MEDS: DOXYCYCLINE HYCLATE 100MG TABLET PO SCH ×2 (11:24→20:47)
[2021-07-26] MEDS: ASPIRIN 81MG ENTERIC TABLET PO SCH (12:34)
[2021-07-26] MEDS: AUGMENTIN 500 MG TAB PO SCH ×2 (12:34→20:47)
[2021-07-27] MEDS: IPRATROPIUM 0.5MG/ALBUTEROL 2.5MG INH SOL UD 3ML (DUONEB) NEB SCH ×4 (01:08→20:02)
[2021-07-27] MEDS: traMADol 50 MG TAB PO PRN ×2 (02:17→09:54)
[2021-07-27 04:48] VITALS: BP 125/78
[2021-07-27] MEDS: FERROUS SULFATE 325MG TAB PO SCH ×2 (05:42→18:07)
[2021-07-27] MEDS: ACETAMINOPHEN TAB 650MG DOSE (2X325MG) PO PRN (05:42)
[2021-07-27 05:50] LABS: BASO % 0.1 % (0.0-1.0); EOS # 0.1 10^3/uL (0.0-0.5); EOS % 0.3 % (0.0-3.0); HEMATOCRIT 30.7 % (42.0-52.0); HEMOGLOBIN 9.9 g/dl (13.5-17.5); LYMPH # 0.8 10^3/uL (1.5-5.0); LYMPH % 4.5 % (24.0-44.0); MEAN CORPUSCULAR HEMOGLOBIN 30.1 pg (27.0-33.0); MEAN CORPUSCULAR HGB CONC 32.2 g/dl (32.0-36.5); MEAN CORPUSCULAR VOLUME 93.3 fl (80.0-96.0); MONO % 5.4 % (2.0-8.0); NEUTROPHILS # 16.1 10^3/uL (1.5-8.5); NEUTROPHILS % 88.5 % (36.0-66.0); PLATELET COUNT, AUTOMATED 133 10^3/uL (150-450); RED BLOOD COUNT 3.29 10^6/uL (4.30-6.10); WHITE BLOOD COUNT 18.1 10^3/uL (4.0-10.0)
[2021-07-27 06:01] LABS: CALCIUM LEVEL 8.1 MG/DL (8.8-10.2); CREATININE FOR GFR 1.97 MG/DL (0.70-1.30); GLOMERULAR FILTRATION RATE 34.3 (>35); MAGNESIUM LEVEL 2.8 MG/DL (1.8-2.4); POTASSIUM SERUM 4.8 MEQ/L (3.5-5.1)
[2021-07-27 07:34] LABS: C REACTIVE PROTEIN QUANTITATIV 0.6 MG/DL (0.00-0.30)
[2021-07-27 07:36] LABS: C REACTIVE PROTEIN QUANTITATIV 0.56 MG/DL (0.00-0.30)
[2021-07-27 07:37] LABS: C REACTIVE PROTEIN QUANTITATIV 0.34 MG/DL (0.00-0.30)
[2021-07-27 07:38] LABS: C REACTIVE PROTEIN QUANTITATIV 0.42 MG/DL (0.00-0.30)
[2021-07-27 08:00] VITALS: BP 129/62
[2021-07-27] MEDS: HumaLOG INSULIN (NovoLOG) PER UNIT SC SCH ×4 (08:01→21:00)
[2021-07-27] MEDS: LACTOBACILLUS ACIDOPHILUS CAP (BACID) PO SCH ×2 (08:01→18:07)
[2021-07-27] MEDS: AUGMENTIN 500 MG TAB PO SCH ×2 (09:46→22:28)
[2021-07-27] MEDS: FINASTERIDE 5MG TAB PO SCH (09:47)
[2021-07-27] MEDS: DOXYCYCLINE HYCLATE 100MG TABLET PO SCH ×2 (09:47→22:29)
[2021-07-27] MEDS: TERAZOSIN 1 MG CAP PO SCH (09:47)
[2021-07-27] MEDS: predniSONE 10 MG TAB PO SCH (09:47)
[2021-07-27] MEDS: PARoxetine 20MG TABLET PO SCH (09:47)
[2021-07-27] MEDS: DOCUSATE SODIUM 100MG CAPSULE PO SCH ×2 (09:47→22:28)
[2021-07-27] MEDS: ASPIRIN 81MG ENTERIC TABLET PO SCH (09:47)
[2021-07-27] MEDS: HEPARIN SOD (PORCINE) 5000UNITS/ML 1ML VIAL/SYRINGE SQ SCH ×2 (09:48→22:29)
[2021-07-27] MEDS: TORSEMIDE 10 MG TABLET PO SCH (09:48)
[2021-07-27] MEDS: ATORVASTATIN 20 MG TAB PO SCH (09:48)
[2021-07-27] MEDS: CLOPIDOGREL 75 MG TAB PO SCH (09:48)
[2021-07-27] MEDS: NYSTATIN 100,000 UNITS/GM TOPICAL PWD 15 GM TOP SCH ×2 (09:49→22:29)
[2021-07-27 14:00] VITALS: BP 120/59
[2021-07-27] MEDS: MOM 30ML SUSPENSION UDC PO PRN (22:29)
[2021-07-28] MEDS: IPRATROPIUM 0.5MG/ALBUTEROL 2.5MG INH SOL UD 3ML (DUONEB) NEB SCH ×4 (02:27→19:32)
[2021-07-28] MEDS: FERROUS SULFATE 325MG TAB PO SCH ×2 (05:24→18:00)
[2021-07-28 06:00] VITALS: BP 118/58
[2021-07-28 06:00] LABS: BASO % 0.1 % (0.0-1.0); EOS # 0.1 10^3/uL (0.0-0.5); EOS % 0.3 % (0.0-3.0); HEMOGLOBIN 10.6 g/dl (13.5-17.5); LYMPH # 1.2 10^3/uL (1.5-5.0); LYMPH % 6.2 % (24.0-44.0); MEAN CORPUSCULAR HEMOGLOBIN 30.2 pg (27.0-33.0); MEAN CORPUSCULAR HGB CONC 32.1 g/dl (32.0-36.5); MONO # 0.9 10^3/uL (0.0-0.8); MONO % 4.6 % (2.0-8.0); NEUTROPHILS # 16.3 10^3/uL (1.5-8.5); NEUTROPHILS % 87.7 % (36.0-66.0); PLATELET COUNT, AUTOMATED 130 10^3/uL (150-450); RED BLOOD COUNT 3.51 10^6/uL (4.30-6.10); WHITE BLOOD COUNT 18.6 10^3/uL (4.0-10.0)
[2021-07-28 06:19] LABS: C REACTIVE PROTEIN QUANTITATIV 0.52 MG/DL (0.00-0.30); CALCIUM LEVEL 8.7 MG/DL (8.8-10.2); CREATININE FOR GFR 2.16 MG/DL (0.70-1.30); GLOMERULAR FILTRATION RATE 30.9 (>35); MAGNESIUM LEVEL 3.1 MG/DL (1.8-2.4); POTASSIUM SERUM 5.1 MEQ/L (3.5-5.1)
[2021-07-28] MEDS: HumaLOG INSULIN (NovoLOG) PER UNIT SC SCH ×4 (07:30→21:00)
[2021-07-28] MEDS: traMADol 50 MG TAB PO PRN ×2 (08:17→14:46)
[2021-07-28] MEDS: HEPARIN SOD (PORCINE) 5000UNITS/ML 1ML VIAL/SYRINGE SQ SCH ×2 (08:18→21:02)
[2021-07-28 08:19] VITALS: BP 118/58
[2021-07-28] MEDS: TERAZOSIN 1 MG CAP PO SCH (08:19)
[2021-07-28] MEDS: PARoxetine 20MG TABLET PO SCH (08:19)
[2021-07-28] MEDS: FINASTERIDE 5MG TAB PO SCH (08:19)
[2021-07-28] MEDS: LACTOBACILLUS ACIDOPHILUS CAP (BACID) PO SCH ×2 (08:19→18:35)
[2021-07-28] MEDS: DOCUSATE SODIUM 100MG CAPSULE PO SCH ×2 (08:19→21:03)
[2021-07-28] MEDS: DOXYCYCLINE HYCLATE 100MG TABLET PO SCH ×2 (08:20→21:03)
[2021-07-28] MEDS: ATORVASTATIN 20 MG TAB PO SCH (08:20)
[2021-07-28] MEDS: predniSONE 10 MG TAB PO SCH (08:20)
[2021-07-28] MEDS: CLOPIDOGREL 75 MG TAB PO SCH (08:20)
[2021-07-28] MEDS: ASPIRIN 81MG ENTERIC TABLET PO SCH (08:20)
[2021-07-28] MEDS: TORSEMIDE 10 MG TABLET PO SCH (08:20)
[2021-07-28] MEDS: AUGMENTIN 500 MG TAB PO SCH ×2 (08:22→21:03)
[2021-07-28 08:28] VITALS: BP 116/57
[2021-07-28] MEDS ORDERED: BISACODYL 10 MG SUPP PR ONE (09:00)
[2021-07-28] MEDS: NYSTATIN 100,000 UNITS/GM TOPICAL PWD 15 GM TOP SCH ×2 (12:58→21:03)
[2021-07-29] MEDS: IPRATROPIUM 0.5MG/ALBUTEROL 2.5MG INH SOL UD 3ML (DUONEB) NEB SCH ×3 (01:40→13:18)
[2021-07-29] MEDS: FERROUS SULFATE 325MG TAB PO SCH ×2 (05:25→17:38)
[2021-07-29 05:50] VITALS: BP 108/55
[2021-07-29 06:21] LABS: BASO % 0.1 % (0.0-1.0); EOS # 0.2 10^3/uL (0.0-0.5); EOS % 0.9 % (0.0-3.0); HEMATOCRIT 32.6 % (42.0-52.0); HEMOGLOBIN 10.7 g/dl (13.5-17.5); LYMPH # 1.2 10^3/uL (1.5-5.0); LYMPH % 6.3 % (24.0-44.0); MEAN CORPUSCULAR HEMOGLOBIN 30.7 pg (27.0-33.0); MEAN CORPUSCULAR HGB CONC 32.8 g/dl (32.0-36.5); MEAN CORPUSCULAR VOLUME 93.4 fl (80.0-96.0); MONO # 0.9 10^3/uL (0.0-0.8); MONO % 4.7 % (2.0-8.0); NEUTROPHILS # 16.1 10^3/uL (1.5-8.5); NEUTROPHILS % 86.8 % (36.0-66.0); PLATELET COUNT, AUTOMATED 126 10^3/uL (150-450); RED BLOOD COUNT 3.49 10^6/uL (4.30-6.10); WHITE BLOOD COUNT 18.5 10^3/uL (4.0-10.0)
[2021-07-29 06:48] LABS: C REACTIVE PROTEIN QUANTITATIV 1.29 MG/DL (0.00-0.30); CALCIUM LEVEL 8.5 MG/DL (8.8-10.2); CREATININE FOR GFR 2.77 MG/DL (0.70-1.30); GLOMERULAR FILTRATION RATE 23.2 (>35); MAGNESIUM LEVEL 3.4 MG/DL (1.8-2.4); POTASSIUM SERUM 5.3 MEQ/L (3.5-5.1)
[2021-07-29] MEDS: HumaLOG INSULIN (NovoLOG) PER UNIT SC SCH ×3 (07:30→17:38)
[2021-07-29] MEDS: LACTOBACILLUS ACIDOPHILUS CAP (BACID) PO SCH ×2 (08:00→17:38)
[2021-07-29] MEDS: traMADol 50 MG TAB PO PRN (08:00)
[2021-07-29] MEDS ORDERED: traMADol 50 MG TAB PO PRN (08:15)
[2021-07-29] MEDS ORDERED: predniSONE 10 MG TAB PO SCH (09:00)
[2021-07-29] MEDS: HEPARIN SOD (PORCINE) 5000UNITS/ML 1ML VIAL/SYRINGE SQ SCH (09:39)
[2021-07-29] MEDS: NYSTATIN 100,000 UNITS/GM TOPICAL PWD 15 GM TOP SCH (09:40)
[2021-07-29] MEDS: TERAZOSIN 1 MG CAP PO SCH ×2 (09:42→10:27)
[2021-07-29] MEDS: ASPIRIN 81MG ENTERIC TABLET PO SCH (09:43)
[2021-07-29] MEDS: DOCUSATE SODIUM 100MG CAPSULE PO SCH (09:43)
[2021-07-29] MEDS: FINASTERIDE 5MG TAB PO SCH (09:44)
[2021-07-29] MEDS: AUGMENTIN 500 MG TAB PO SCH (09:44)
[2021-07-29] MEDS: PARoxetine 20MG TABLET PO SCH (09:44)
[2021-07-29] MEDS: ATORVASTATIN 20 MG TAB PO SCH (09:44)
[2021-07-29] MEDS: DOXYCYCLINE HYCLATE 100MG TABLET PO SCH (09:45)
[2021-07-29] MEDS: CLOPIDOGREL 75 MG TAB PO SCH (09:45)
[2021-07-29 09:52] VITALS: BP 111/52
[2021-07-29] MEDS ORDERED: SOD POLYSTYRENE SULFONATE SUSP 15 GM/60 ML UD PO ONE (12:00)
[2021-07-29 16:31] LABS: CALCIUM LEVEL 8.2 MG/DL (8.8-10.2); CREATININE FOR GFR 3.15 MG/DL (0.70-1.30); POTASSIUM SERUM 5.6 MEQ/L (3.5-5.1)
[2021-07-29 17:28] VITALS: BP 90/44
[2021-07-29] MEDS ORDERED: NS 1,000 ML IV SCH (17:30)
[2021-07-29] MEDS ORDERED: SOD POLYSTYRENE SULFONATE SUSP 30 GM/120 ML ENEMA PR ONE (18:00)
[2021-07-29 18:07] LABS: BASO % 0.1 % (0.0-1.0); EOS % 0.1 % (0.0-3.0); HEMATOCRIT 30.3 % (42.0-52.0); HEMOGLOBIN 9.8 g/dl (13.5-17.5); LYMPH # 0.3 10^3/uL (1.5-5.0); LYMPH % 1.6 % (24.0-44.0); MEAN CORPUSCULAR HEMOGLOBIN 30.7 pg (27.0-33.0); MEAN CORPUSCULAR HGB CONC 32.3 g/dl (32.0-36.5); MONO # 0.3 10^3/uL (0.0-0.8); MONO % 1.8 % (2.0-8.0); NEUTROPHILS # 16.9 10^3/uL (1.5-8.5); NEUTROPHILS % 95.6 % (36.0-66.0); PLATELET COUNT, AUTOMATED 115 10^3/uL (150-450); RED BLOOD COUNT 3.19 10^6/uL (4.30-6.10); WHITE BLOOD COUNT 17.7 10^3/uL (4.0-10.0)
[2021-07-29] MEDS ORDERED: MORPHINE 10MG/0.5ML ORAL CONCENTRATE SOLUTION U/D SL PRN (18:10)
[2021-07-29] MEDS ORDERED: LORazepam 1 MG TAB PO PRN (18:10)
[2021-07-29] MEDS ORDERED: SCOPOLAMINE 1MG TRANSDERMAL PATCH TOP PRN (18:10)
[2021-07-29] MEDS: MORPHINE 10MG/0.5ML ORAL CONCENTRATE SOLUTION U/D SL PRN (22:10)
[2021-07-30] MEDS: MORPHINE 10MG/0.5ML ORAL CONCENTRATE SOLUTION U/D SL PRN ×6 (00:47→14:37)
[2021-07-31] MEDS: MORPHINE 10MG/0.5ML ORAL CONCENTRATE SOLUTION U/D SL PRN ×8 (03:33→23:13)
[2021-08-01] MEDS: MORPHINE 10MG/0.5ML ORAL CONCENTRATE SOLUTION U/D SL PRN ×3 (01:36→08:38)
== END 2021-08-01 12:24 | disposition expired | DRG 196 ==
LOC: M ICU 21:48 → M MSPAV 07-12 19:15
PROVIDERS: ADMIT Internal Medicine; ATTEND Internal Medicine
DX: J84.10 Pulmonary fibrosis, unspecified (principal); J96.01 Acute respiratory failure with hypoxia; I50.22 Chronic systolic (congestive) heart failure; E87.2 Acidosis; N17.9 Acute kidney failure, unspecified; I13.0 Hypertensive heart and chronic kidney disease with heart failure and stage 1 through stage 4 chronic kidney disease, or unspecified chronic kidney disease; J84.9 Interstitial pulmonary disease, unspecified; R29.6 Repeated falls; E78.5 Hyperlipidemia, unspecified; F41.8 Other specified anxiety disorders; J44.9 Chronic obstructive pulmonary disease, unspecified; N18.32 Chronic kidney disease, stage 3b; D50.9 Iron deficiency anemia, unspecified; I95.1 Orthostatic hypotension; E11.22 Type 2 diabetes mellitus with diabetic chronic kidney disease; L89.152 Pressure ulcer of sacral region, stage 2; E87.5 Hyperkalemia; N40.0 Benign prostatic hyperplasia without lower urinary tract symptoms; F32.A Depression, unspecified; I25.2 Old myocardial infarction; Z79.82 Long term (current) use of aspirin; Z79.899 Other long term (current) drug therapy; H35.30 Unspecified macular degeneration; H54.8 Legal blindness, as defined in USA; Z95.2 Presence of prosthetic heart valve; I25.10 Atherosclerotic heart disease of native coronary artery without angina pectoris; Z66 Do not resuscitate